=== PATIENT | male | born 2000 | race Two or more races ===

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

== ENCOUNTER 2020-01-03 15:02 | Emergency (ER) | payer OTHER, SELFPAY ==
[2020-01-04 12:08] LABS: SARS-CoV-2 MS2 Positive; SARS-CoV-2 N Gene Negative; SARS-CoV-2 S Gene Negative; SARS-CoV-2 by NAA Not Detected (NotDetected); SARS-CoV-2 orf1ab Negative
== END 2020-01-03 15:32 | disposition home or self-care (01) ==
LOC: ERS 15:02
DX: R51.9 Headache, unspecified (principal); Z20.828 Contact with and (suspected) exposure to other viral communicable diseases; F41.9 Anxiety disorder, unspecified
CPT/HCPCS: 87635; 99283; U0003

== ENCOUNTER 2020-02-24 15:31 | Emergency (ER) | payer OTHER, SELFPAY ==
[2020-02-24 21:19] LABS: SARS-CoV-2 MS2 Positive; SARS-CoV-2 N Gene Negative; SARS-CoV-2 S Gene Negative; SARS-CoV-2 by NAA Not Detected (NotDetected); SARS-CoV-2 orf1ab Negative
== END 2020-02-24 15:50 | disposition home or self-care (01) ==
LOC: ERS 15:31
DX: Z20.828 Contact with and (suspected) exposure to other viral communicable diseases (principal); F41.9 Anxiety disorder, unspecified
CPT/HCPCS: 87635; 99283; U0003

== ENCOUNTER 2020-04-13 08:04 | Emergency (ER) | payer SELFPAY ==
[2020-04-13 13:14] LABS: SARS-CoV-2 MS2 Positive; SARS-CoV-2 N Gene Negative; SARS-CoV-2 S Gene Negative; SARS-CoV-2 by NAA Not Detected (NotDetected); SARS-CoV-2 orf1ab Negative
== END 2020-04-13 08:30 | disposition home or self-care (01) ==
LOC: ERS 08:04
DX: R51.9 Headache, unspecified (principal); Z20.822 Contact with and (suspected) exposure to COVID-19
CPT/HCPCS: 87635; 99283; U0003

== ENCOUNTER 2020-10-06 20:35 | Emergency (ER) | payer OTHER, SELFPAY ==
[2020-10-06] MEDS ORDERED: Bicillin LA 1.2 MILLION UNITS/2 ML SYRINGE ONE (22:04)
[2020-10-06] MEDS ORDERED: Bicillin LA 1.2 MILLION UNITS/2 ML SYRINGE IM SCH (22:30)
== END 2020-10-06 22:55 | disposition home or self-care (01) ==
LOC: ERS 20:35
DX: J02.0 Streptococcal pharyngitis (principal)
CPT/HCPCS: 87430; 96372; 99283; J0561

== ENCOUNTER 2021-01-16 21:08 | Emergency (ER) | payer OTHER, SELFPAY ==
[2021-01-16] MEDS ORDERED: Ketorolac Tromethamine 30 MG/ML VIAL ONE (21:18)
== END 2021-01-16 22:40 ==
LOC: ERS 21:08
DX: S62.631A Displaced fracture of distal phalanx of left index finger, initial encounter for closed fracture (principal); S50.311A Abrasion of right elbow, initial encounter; S50.812A Abrasion of left forearm, initial encounter; S60.413A Abrasion of left middle finger, initial encounter; S80.812A Abrasion, left lower leg, initial encounter; S60.512A Abrasion of left hand, initial encounter; V29.40XA Motorcycle driver injured in collision with unspecified motor vehicles in traffic accident, initial encounter
CPT/HCPCS: 96372; J1885

== ENCOUNTER 2021-04-02 22:41 | Emergency (ER) | payer SELFPAY ==
[2021-04-03] MEDS ORDERED: Dexamethasone 10 MG/ML VIAL ONE (00:11)
== END 2021-04-03 00:15 | disposition home or self-care (01) ==
LOC: ERS 22:41
DX: J02.9 Acute pharyngitis, unspecified (principal)
CPT/HCPCS: 87081; 87430; 99283; J1100

== ENCOUNTER 2021-05-18 14:13 | Emergency (ER) | payer SELFPAY | END 2021-05-18 16:42 | disposition left against medical advice (07) | LOC: ERS 14:13 | DX: Z53.21 Procedure and treatment not carried out due to patient leaving prior to being seen by health care provider (principal) ==

== ENCOUNTER 2021-05-20 10:54 | Emergency (ER) | payer SELFPAY ==
[2021-05-20 23:13] LABS: SARS-CoV-2 PCR by NAA Not Detected (NotDetected)
== END 2021-05-20 13:54 | disposition home or self-care (01) ==
LOC: ERS 10:54
DX: J02.9 Acute pharyngitis, unspecified (principal); R05.9 Cough, unspecified; R09.89 Other specified symptoms and signs involving the circulatory and respiratory systems; Z20.822 Contact with and (suspected) exposure to COVID-19
CPT/HCPCS: 87081; 87430; 99283; U0003; U0005